=== PATIENT | male | born 1950 | race Caucasian/White ===

== ENCOUNTER 2016-12-21 15:57 | Emergency (ER) | payer MEDICARE, OTHER ==
[~2016-12-21] VITALS: Ht 185.4 cm; Wt 103.9 kg
[2016-12-21] MEDS ORDERED: UBID1CAP53 PO (16:11)
[2016-12-21] MEDS ORDERED: ASPI-605 PO (16:11)
[2016-12-21] MEDS ORDERED: ATOR20TA PO (16:11)
[2016-12-21 16:30] LABS: BASOPHILS % (AUTO) 0.5 % (0.0-2.0); DIFF TOTAL % 100 %; EOSINOPHILS # (AUTO) 0.2 /CMM (0.0-0.7); HEMATOCRIT 47 % (39-51); HEMOGLOBIN 15.5 g/dL (13.5-17.5); LYMPHOCYTES % (AUTO) 30.7 % (20.0-44.0); MEAN CORPUSCULAR HEMOGLOBIN 27 PG (26.0-33.0); MEAN CORPUSCULAR HGB CONC 33 g/dl (31.0-36.0); MEAN CORPUSCULAR VOLUME 83 fL (80-96); MONOCYTES # (AUTO) 0.5 /CMM (0.1-1.30); MONOCYTES % (AUTO) 7.7 % (2.0-12.0); NEUTROPHILS # (AUTO) 3.7 /CMM (1.8-8.9); NEUTROPHILS % (AUTO) 58.1 % (43.0-81.0); PLATELET COUNT (AUTO) 143 /CMM (150-450); RED BLOOD CELL COUNT(AUTO) 5.71 MIL/uL (4.5-6.0); WHITE BLOOD COUNT (AUTO) 6.4 K/uL (4.3-11.0)
[2016-12-21] MEDS ORDERED: IV NS 0.9% 1,000 ML BAG IV ONE (16:30)
[2016-12-21] MEDS ORDERED: IV NS 0.9% 1,000 ML ONE (16:33)
[2016-12-21 16:38] LABS: ANION GAP 14 (5-14); CALCIUM, SERUM 8.8 mg/dL (8.5-10.1); CARBON DIOXIDE 25 mmol/L (21-32); CHLORIDE 105 mmol/L (98-107); GFR 75 mL/min (>60); GLUCOSE 126 mg/dL (74-106); POTASSIUM 3.6 mmol/L (3.5-5.1); SODIUM SERUM 140 mmol/L (136-145); UREA NITROGEN, BLOOD 17 mg/dL (7-18)
[2016-12-21 16:42] LABS: INR 1.08 (0.87-1.13); PROTHROMBIN TIME 11.3 SECS (9.5-12.7)
[2016-12-21 16:47] LABS: TROPONIN I < 0.017 ng/mL (0.00-0.056)
[2016-12-21 17:31] VITALS: BP 135/101
== END 2016-12-21 17:34 | disposition home or self-care (01) ==
LOC: ER 15:59
DX: T73.3XXA Exhaustion due to excessive exertion, initial encounter (principal); R53.1 Weakness; R55 Syncope and collapse; Z98.890 Other specified postprocedural states; Z79.82 Long term (current) use of aspirin; X58.XXXA Exposure to other specified factors, initial encounter
CPT/HCPCS: 36415; 71010; 80048; 82962; 84484; 85025; 85730; 93005; 96360; 99285; A4606; J7030; Z7610

== ENCOUNTER 2017-02-26 20:39 | Emergency (ER) | payer MEDICARE, BC ==
[~2017-02-26] VITALS: Ht 185.4 cm; Wt 104.3 kg
[~2017-02-26 20:39] MED LIST: ASPI-605 PO; ATOR20TA PO; UBID1CAP53 PO
[2017-02-26 21:39] LABS: APPEARANCE,URINE Clear (CLEAR); BILIRUBIN,URINE Negative (NEGATIVE); BLOOD, URINE Negative Ery/uL (NEGATIVE); COLOR,URINE Yellow (YELLOW); KETONES,URINE Negative (NEGATIVE); LEUKOCYTE ESTERASE ,URINE Negative (NEGATIVE); NITRITE, URINE Negative (NEGATIVE); PROTEIN,URINE Negative (NEGATIVE); UGLUCOSE Negative (NEGATIVE); UROBILINOGEN,URINE 0.2 EU/dL (0.2)
--- NOTE | 2017-02-26 21:45 | NUR ---
PT CAME IN FROM HOME CO HEADACHE, LIGHTHEADEDNESS AND GEN BODY PAIN SINCE 10 AM. A/OX4. CO SOB EARLIER BUT BETTER NOW. DENIES ANY OTHER PAIN OR DISCOMFORT AT THIS TIME.
--- NOTE | 2017-02-26 22:45 | NUR ---
Patient discharged to home in stable condition. Written and verbal after care instructions given. Patient verbalizes understanding of instruction.
[2017-02-26 23:05] VITALS: BP 119/86
== END 2017-02-26 23:06 | disposition home or self-care (01) ==
LOC: ER 20:40
DX: R42 Dizziness and giddiness (principal); Z79.82 Long term (current) use of aspirin
CPT/HCPCS: 81000-TC; A4606; Z7610

== ENCOUNTER 2024-03-06 19:15 | Emergency (ER) | payer BC, MEDICARE ==
[~2024-03-06] VITALS: Ht 182.9 cm; Wt 106.6 kg
[~2024-03-06 19:15] MED LIST changes: -UBID1CAP53 PO; +UBID1CAP54 PO
[2024-03-06] MEDS ORDERED: LIDOCAINE /MPF 1% VIAL 5 ML VIAL ONE (20:41)
[2024-03-06] MEDS ORDERED: CEFTRIAXONE 1 G VIAL ONE (20:42)
[2024-03-06] MEDS: CEFTRIAXONE 1 G VIAL IM ONE (20:53)
[2024-03-06 21:27] LABS: APPEARANCE,URINE BLOODY (CLEAR); COLOR,URINE RED (YELLOW)
[2024-03-06 21:31] LABS: BACTERIA,URINE 2+ /HPF (None Seen); RBC,URINE TOO NUMEROUS TO COUN /HPF (0-2); WBC,URINE 21-50 /HPF (0-3)
[2024-03-06 21:32] LABS: SQUAMOUS EPITHELIAL CELL,UR 0-2 /HPF (None Seen)
[2024-03-06] MEDS ORDERED: LEVO750T46 PO (21:43)
[2024-03-06 21:57] VITALS: BP 149/93; TEMP 98.1; O2SAT 100
== END 2024-03-06 21:58 | disposition home or self-care (01) ==
LOC: ER 19:18
DX: N39.0 Urinary tract infection, site not specified (principal); B96.20 Unspecified Escherichia coli [E. coli] as the cause of diseases classified elsewhere; R31.9 Hematuria, unspecified; Z85.72 Personal history of non-Hodgkin lymphomas
CPT/HCPCS: 99284; 96372; 81001; J0696; J3490